=== PATIENT | female | born 1970 | race Two or more races ===

== ENCOUNTER → 2023-01-12 | Outpatient (REF) | payer BC | LOC: M LAB REF 16:39 | PROVIDERS: ATTEND Nurse Practitioner Family | DX: R30.0 Dysuria (principal) ==

== ENCOUNTER → 2023-11-09 | Outpatient (REF) | payer BC | LOC: M SFHCDERM 17:18 | PROVIDERS: ATTEND Nurse Practitioner Family | DX: D49.2 Neoplasm of unspecified behavior of bone, soft tissue, and skin (principal) ==